=== PATIENT | male | born 1975 | race Caucasian/White ===

== ENCOUNTER 2020-12-07 15:28 | Emergency (ER) | payer OTHER ==
[2020-12-07 16:34] LABS: HEMOGLOBIN 14.6 gm/dl (14.0-17.5); RED BLOOD COUNT 4.63 M/UL (4.20-5.50); WHITE BLOOD COUNT 7.8 K/UL (4.5-11.0)
[2020-12-07 16:56] LABS: BUN/CREATININE RATIO 15 (0-10)
[2020-12-07 17:49] LABS: BORDETELLA PARAPERTUSSIS Not Detected (Not Detectd); BORDETELLA PERTUSSIS Not Detected (Not Detectd); CHLAMYDIA PNEUMONIAE Not Detected (Not Detectd); CORONAVIRUS HKU1 Not Detected (Not Detectd); CORONAVIRUS NL63 Not Detected (Not Detectd); CORONAVIRUS OC43 Not Detected (Not Detectd); CORONOAVIRUS 229E Not Detected (Not Detectd); HUMAN METAPNEUMOVIRUS Not Detected (Not Detectd); HUMAN RHINOVIRUS/ENTEROVIRUS Not Detected (Not Detectd); INFLUENZA A Not Detected (Not Detectd); INFLUENZA B Not Detected (Not Detectd); MYCOPLASMA PNEUMONIAE Not Detected (Not Detectd); PARAINFLUENZA VIRUS 1 Not Detected (Not Detectd); PARAINFLUENZA VIRUS 2 Not Detected (Not Detectd); PARAINFLUENZA VIRUS 3 Not Detected (Not Detectd); PARAINFLUENZA VIRUS 4 Not Detected (Not Detectd)
[2020-12-07 18:47] LABS: RESPIRATORY SYNCYTIAL VIRUS DETECTED (Not Detectd); SARS-CoV-2 DETECTED (Not Detectd)
[2020-12-07] MEDS ORDERED: PROVENTIL HFA6.7 GM INH (20:41)
== END 2020-12-07 21:10 | disposition home or self-care (01) ==
LOC: ER1 15:28
PROVIDERS: Preventive Medicine Occupational Medicine
DX: U07.1 COVID-19 (principal); Z23 Encounter for immunization; B97.4 Respiratory syncytial virus as the cause of diseases classified elsewhere; E11.9 Type 2 diabetes mellitus without complications
CPT/HCPCS: 71045; 80053; 81001; 83690; 85025; 85652; 86140; 87086; 87633; 93005; 96374; 96375; 99285; J0696; J1100; M0243

== ENCOUNTER 2021-10-31 19:19 | Emergency (ER) | payer SELFPAY ==
[~2021-10-31 19:19] MED LIST: PROVENTIL HFA6.7 GM INH
[2021-10-31] MEDS ORDERED: ERYTHROMYCIN OP1 GM OP (20:21)
[2021-10-31] MEDS ORDERED: IBUPROFEN600 MG PO (20:21)
== END 2021-10-31 20:35 | disposition home or self-care (01) ==
LOC: ER1 19:19
DX: T15.02XA Foreign body in cornea, left eye, initial encounter (principal); W22.8XXA Striking against or struck by other objects, initial encounter
CPT/HCPCS: 99282